=== PATIENT | female | born 2005 | race Caucasian/White ===

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

== ENCOUNTER 2023-12-24 21:36 | Emergency (ER) | payer OTHER, SELFPAY ==
[2023-12-24 21:37] VITALS: BP 103/90; PULSE 141; RESP 18; TEMP 36.6; O2SAT 100; BMI 21.0
[2023-12-24 21:47] VITALS: PULSE 101
--- NOTE | 2023-12-24 22:12 | EKG12_ITS ---
Test Reason : PALPS Blood Pressure : / mmHG Vent. Rate : 101 BPM Atrial Rate : 101 BPM P-R Int : 126 ms QRS Dur : 074 ms QT Int : 318 ms P-R-T Axes : 077 073 043 degrees QTc Int : 412 ms Sinus tachycardia Otherwise normal ECG Confirmed by GEORGIE HANEY, JORGE ([id number]), proposal editor EBER YOON ([id number]) on 12/25/2023 11:31:45 AM Referred By: Confirmed By:JORGE JACQUES MD
--- NOTE | 2023-12-24 22:20 | RAD_ITS ---
STUDY: X-RAY CHEST REASON FOR EXAM: Female, 18 years old. chest pain TECHNIQUE: Single AP portable view of the chest. COMPARISON: 11/10/2019. FINDINGS: The lungs are clear and expanded. There is no demonstrated pleural abnormality. Normal size heart. Normal mediastinum and radha. Normal visualized pulmonary arteries. Normal visualized aortic arch and descending thoracic aorta. Normal visualized thoracic spine. Normal visualized ribs, clavicles, and shoulders. There is no demonstrated abnormality of the visualized soft tissue structures of the upper abdomen. RAD/Chest 1 View (Portable) IMPRESSION: Normal x-ray examination of the chest. Electronically Signed: Trav Washington MD at 22:43 EDT ,
[2023-12-24 22:40] LABS: Absolute Lymphocyte Count 1.04 X10^3/uL (0.83-4.51); Absolute Neutrophil Count 5.7 X10^3/uL (2.0-7.7); Basophil# 0.02 X10^3/uL; Basophil% 0.3 % (0-1); Eosinophil# 0.01 X10^3/uL; Eosinophils% 0.1 % (0-5); Hemoglobin 12.9 g/dL (12.0-15.0); Lymphocyte # 1.04 X10^3/ul (0.83-4.51); Lymphocyte % 14.4 % (19-41); Mean Corp Hgb Conc 34.9 g/dL (32-36); Mean Corpuscular Hgb 31.3 pg (27.0-32.0); Mean Corpuscular Volume 89.8 fL (81-99); Mean Platelet Vol. 10.6 fl (6.2-12.0); Monocyte# 0.46 X10^3/uL; Monocyte% 6.4 % (0-10); NRBC Flagged by Analyzer 0 % (0-5); Neutrophil # 5.66 X10^3/uL (2.7-7.7); Neutrophil % 78.5 % (47-70); Platelet Count 213 K/mm3 (150-450); RBC Distribution Width CV 12.1 % (11.6-14.6); RBC Distribution Width SD 39.4 fl (35.1-43.9); Red Blood Count 4.12 M/mm3 (4.2-5.4); White Blood Count 7.2 K/mm3 (4.4-11.0)
[2023-12-24 23:07] LABS: Anion Gap 8 (5-15); BUN 11 mg/dL (7-18); BUN/Creat Ratio 17.1 RATIO (10-20); Calcium,Total 9.8 mg/dL (8.5-10.1); Chloride 104 mmol/L (98-107); Creatinine, Serum 0.64 mg/dL (0.55-1.02); EST Glomerular Filtration Rate 125 mL/min (>60); Est Glom Filt Rate - Afr Amer 151 mL/min (>60); Estimated Creatinine Clearance 94.38 ml/min; Glucose 93 mg/dL (74-106); Potassium 3.5 mmol/L (3.5-5.1); Sodium Level 136 mmol/L (136-145); Troponin-I HS (w/2H Reflex) 10 pg/mL (3.0-54.0)
[2023-12-24] MEDS: LORazepam 2 MG/ML Syringe 1 MG IV (23:14)
[2023-12-24] MEDS: 0.9% Normal Saline (1000mL) 1,000 ML 999 ML IV (23:14)
[2023-12-24 23:22] LABS: Internal QC Validated? YES +Cl - CLEAR BKGD; Pregnancy, Serum, hCG Quali. NEGATIVE Negative
[2023-12-24 23:39] LABS: Thyroid Stim Hormone (TSH) 7.49 uIU/mL (0.358-3.74)
[2023-12-24 23:45] VITALS: BP 108/76; PULSE 103; RESP 15; O2SAT 100
[2023-12-25 00:35] LABS: Reflex Troponin-HS? (from REC) Y
--- NOTE | 2023-12-25 00:49 | EX.ED.DYSGE1 ---
HPI History of Present Illness Chief Complaint: Palpitations Informant: patient and family Narrative Narrative: Patient is a 18-year-old female with past medical history of depression. She states that today she had a toothache so she took amoxicillin ibuprofen and Tylenol and then shortly after this began feeling her heart was racing. She denies any illicit drug use and she denies any personal history or family history of cardiac dysrhythmia. She also denies any recent travel surgery or history of DVT/PE. She states there is no chest pain or pain with inspiration but because of the persistent elevated heart rates she is concerned and therefore comes in for evaluation [facility] Medical History no medical history Home Medications ?Medication ?Instructions ?Recorded ?Last Taken ?Type amoxicillin 875 mg tablet 875 mg PO BID 12/25/23 Unknown History buspirone 7.5 mg tablet 7.5 mg PO BID 30 days #60 tabs 12/25/23 Unknown Rx Allergy/AdvReac Type Severity Reaction Status Date / Time No Known Allergies Allergy Verified 12/24/23 21:39 Social History Smoking Status: Never smoker [facility] ED Constitutional Constitutional ED: Denies chills or fever(s) Eyes Eyes: Denies change in vision or diplopia ENT ENT ED: Denies sore throat Cardiovascular Cardiovascular: Reports palpitations and racing heartbeat; Denies chest pain Respiratory/Chest Respiratory/Chest: Denies cough or dyspnea Gastrointestinal Gastrointestinal: Denies abdominal pain, diarrhea, nausea or vomiting Genitourinary Genitourinary ED: Denies dysuria or hematuria Musculoskeletal Musculoskeletal: Denies myalgias Integumentary Denies rash Neurologic Neurologic: Denies headache(s) Psychiatric Psychiatric: Reports anxiety and depression Hematologic/Lymphatic Hematologic/Lymphatic: Denies easy bleeding or easy bruising EXAM Physical Exam Const Vital Signs: 12/24/23 21:37 12/24/23 21:47 12/24/23 22:12 Temperature 97.8 F Temperature Source Temporal Pulse Rate 141 H 101 H Respiratory Rate 18 Respiratory Effort Blood Pressure 103/90 H Blood Pressure Mean 94 Pulse Ox 100 Oxygen Delivery Method Room Air Room Air 12/24/23 23:18 12/24/23 23:45 12/25/23 01:00 Temperature 97.3 F L Temperature Source Pulse Rate 103 H 110 H Respiratory Rate 15 16 Respiratory Effort Normal Blood Pressure 108/76 104/63 Blood Pressure Mean 86 76 Pulse Ox 100 98 Oxygen Delivery Method Room Air Positive well nourished and well developed General Appearance ED: well developed; Negative for pallor HEENT Reports moist mucous membranes Eyes PERRL and EOMs intact bilaterally General Eye ED: Negative for pale conjunctiva or scleral icterus Neck supple and no JVD Chest Wall palpation of chest normal Chest Narrative: No bony deformity or crepitance noted Resp normal respiratory effort and clear to auscultation bilaterally Resp Narrative: No nasal flaring retractions tachypnea or accessory muscle use Breath sounds are clear throughout Cardio regular rate and regular rhythm Rate: tachycardic and other Other Details: Tachycardic rate with regular rhythm No murmurs rubs or gallop Radial and carotid pulses are equal and symmetric GI normal to inspection, nondistended, normoactive bowel sounds, non-tender and non-distended Auscultation: normoactive bowel sounds Palpation: soft Extremity normal to inspection Extremity Narrative: No asymmetric edema no pitting edema negative Homans' sign bilaterally Neuro oriented x3, CN's II-XII intact bilaterally and no sensory deficits noted Sensorium / Orientation: alert Motor Exam: strength 5/5 throughout Psych Psych Narrative: Patient has a nervous/anxious affect Skin no rashes or lesions noted, no wounds and skin turgor normal General Skin Exam: Negative for jaundice or pallor MDM MDM MDM Narrative Medical decision making narrative: Patient arrived to the ER tachycardic but otherwise with stable vitals. She reported her symptoms began after taking amoxicillin ibuprofen and Tylenol. She denied any illicit drug use such as methamphetamines or cocaine use. She denies any recent travel or surgery or history of DVT/PE and did not report any type of chest pain or pleuritic chest pain so I have low concern for a pulmonary embolus. Patient has a nervous/anxious affect and this is most likely breakthrough anxiety. In order to ensure that this was not related to acute kidney injury severe electrolyte abnormality or acute blood loss anemia I did elect to perform basic laboratory studies. Labs revealed no clinically significant findings and chest x-ray revealed no acute lung pathology. Patient was hydrated and given Ativan and had resolution of her symptoms. She reported feeling much better and requested to be discharged. As workup does not reveal any clinically significant laboratory findings and symptoms have improved with anoxia lytic medication I feel this is anxiety reaction and patient can be placed on buspirone and is otherwise safe for discharge History & Record Review Discussion w/independent historian: Patient and Family Lab Data Attestation: I reviewed the patient's lab results. Labs: Laboratory Results - last 24 hr 12/24/23 22:30 WBC 7.2 RBC 4.12 L Hgb 12.9 Hct 37.0 MCV 89.8 MCH 31.3 MCHC 34.9 RDW Std Deviation 39.4 RDW Coeff of Palmer 12.1 Plt Count 213 MPV 10.6 Immature Gran % (Auto) 0.300 Neut % (Auto) 78.5 H Lymph % (Auto) 14.4 L [place] % (Auto) 6.4 Eos % (Auto) 0.1 Baso % (Auto) 0.3 Absolute Neuts (auto) 5.7 Absolute Lymphs (auto) 1.04 Nucleated RBC % 0 Sodium 136 Potassium 3.5 Chloride 104 Carbon Dioxide 24.0 Anion Gap 8 BUN 11 Creatinine 0.64 Estim Creat Clear Calc 94.38 Est GFR (MDRD) Af Amer 151 Est GFR (MDRD) Non-Af 125 BUN/Creatinine Ratio 17.1 Glucose 93 Calcium 9.8 Magnesium 2.0 Troponin I High Sens 10 TSH 7.49 H Serum , Qual NEGATIVE Radiography Diagnostic Testing: Clinical Impression(s) from Imaging Studies Chest X-Ray 12/24/23 22:20 IMPRESSION: Normal x-ray examination of the chest. Electronically Signed: Trav Washington MD at 22:43 EDT Reading Location ID and State: [address] [place] [address] , Service support , Chest x-ray as interpreted by the emergency medicine physician reveals no acute infiltrate pneumothorax or pleural effusion Discharge Plan Triage Chief Complaint: Palpitations ED Provider: Mckinley Young Dx/Rx/DC Orders Clinical Impression: Sinus tachycardia, Anxiety reaction Instructions: Your Body's Response to Anxiety, Understanding Tachycardia Prescriptions: New buspirone 7.5 mg tablet 7.5 mg PO BID 30 Days Qty: 60 0RF No Action amoxicillin 875 mg tablet 875 mg PO BID Primary Care Provider: Toshia Colin Referrals: Toshia Colin MD [Primary Care Provider] - Print Language: Malaysian Disposition Disposition: Home, Self Care Discharge Date/Time: 12/25/23 01:04
[2023-12-25 01:00] VITALS: BP 104/63; PULSE 110; RESP 16; TEMP 36.3; O2SAT 98
== END 2023-12-25 01:04 | disposition home or self-care (01) ==
PROVIDERS: Emergency Provider Emergency Medicine; PCP Pediatrics; Visit Provider Emergency Medicine
DX: R00.0 Tachycardia, unspecified (principal); F41.1 Generalized anxiety disorder; F32.A Depression, unspecified; Z79.899 Other long term (current) drug therapy
CPT/HCPCS: 71045; 80048; 83735; 84443; 84484; 84703; 85025; 93005; 96361; 96374; 99283; J7040; A4216